=== PATIENT | male | born 1995 | race Caucasian/White ===

== ENCOUNTER 2018-11-22 19:17 | Emergency (ER) | payer BC ==
[2018-11-22 20:15] VITALS: BP 147/67
--- NOTE | 2018-11-22 20:17 | UC ---
Hand/Wrist HPI - HPI Summary HPI Summary: 23 yo male presents with LEFT hand pain. He tells me that 2 nights ago he punched a wall out of anger. Had immediate pain to the 5th MCP. Since that time has been painful, but pain has improved with rest and ice. He is right hand dominant. Denies numbness or tingling. - History Of Current Complaint Chief Complaint: UCUpperExtremity Stated Complaint: LEFT HAND INJURY Time Seen by Provider: 11/22/18 20:17 Hx Obtained From: Patient Onset/Duration: Sudden Onset Severity Initially: Severe Severity Currently: Moderate Pain Intensity: 5 Pain Scale Used: 0-10 Numeric - Allergies/Home Medications Allergies/Adverse Reactions: Allergies Allergy/AdvReac Type Severity Reaction Status Date / Time No Known Allergies Allergy Verified 11/22/18 20:07 Home Medications: Home Medications NK [No Home Medications Reported] 11/22/18 [History Confirmed 11/22/18] PMH/Surg Hx/FS Hx/Imm Hx - Additional Past Medical History Additional PMH: None - Surgical History Surgical History: Yes Surgery Procedure, Year, and Place: UMBILLICAL HERNIA REPAIR. EAR TUBES - Family History Known Family History: Positive: Non-Contributory - Social History Occupation: Student Lives: Dormitory/Roommates Alcohol Use: Rare Substance Use Type: None Smoking Status (MU): Never Smoked Tobacco Review of Systems All Other Systems Reviewed And Are Negative: No Constitutional: Positive: Negative Skin: Positive: Negative Respiratory: Positive: Negative Cardiovascular: Positive: Negative Neurovascular: Positive: Negative Musculoskeletal: Positive: Other: - Left hand pain Neurological: Positive: Negative Psychological: Positive: Negative Physical Exam - Summary Physical Exam Summary: GENERAL: NAD. WDWN. No pain distress. SKIN: No rashes, sores, lesions, or open wounds. CHEST: No accessory muscle use. Breathing comfortably and in no distress. CV: Pulses intact radial and ulnar. Cap refill <2seconds MSK: LEFT HAND: 5th MCP moderate edema and mild TTP. FROM with mild pain. No snuffbox tenderness. NEURO: Alert. Sensations intact hand and all fingers. PSYCH: Age appropriate behavior. Triage Information Reviewed: Yes Vital Signs: Initial Vital Signs Temp 99 F 11/22/18 20:07 Pulse 76 11/22/18 20:07 Resp 16 11/22/18 20:07 BP 147/67 11/22/18 20:07 Pulse Ox 99 11/22/18 20:07 Vital Signs Reviewed: Yes Procedures - Splinting Left 5th Digit Hand-Made Type: orthoglass Splint: ulnar Pre-Proc Neuro Vasc Exam: normal Post-Proc Neuro Vasc Exam: normal Splint Applied by Provider: [facility] - Radiology Hand XR Radiology Interpretation Completed By: ED Physician Summary of Radiographic Findings: Fracture 5th MCP with slight displacement. Hand/Wrist Course/Dx - Course Course Of Treatment: XR wet read positive for fx as above. Pt as placed in an ulnar gutter splint and advised to RICE and f/u with Orthopedics this week for further evaluation - Differential Dx/Diagnosis Provider Diagnosis: Closed fracture of 5th metacarpal Discharge ED - Sign-Out/Discharge Documenting (check all that apply): Patient Departure All imaging exams completed and their final reports reviewed: No - Discharge Plan Condition: Stable Disposition: HOME Patient Education Materials: Boxer Fracture (ED) Referrals: No Primary Care Phys,NOPCP [Primary Care Provider] - Alexis Kate MD [Medical Doctor] - As Soon As Possible Additional Instructions: If you develop a fever, shortness of breath, chest pain, new or worsening symptoms - please call your PCP or go to the ED immediately. 1) Rest, Ice, and elevate your hand to decrease pain and swelling 2) Keep the splint clean, dry, and intact until you are able to see Orthopedics 3) Please schedule an appointment with Orthopedics as soon as possible for further treatment - Billing Disposition and Condition Condition: STABLE Disposition: Home - Attestation Statements Provider Attestation: Chart reviewed. Pt not seen by me. I was available for consult. TRACY
--- NOTE | 2018-11-23 08:23 | UC ---
- Progress Note Progress Note: xray report : IMPRESSION: Fracture of the fifth metacarpal head. R0 Course/Dx - Diagnoses Provider Diagnoses: Closed fracture of 5th metacarpal Discharge ED - Sign-Out/Discharge Documenting (check all that apply): Patient Departure All imaging exams completed and their final reports reviewed: Yes - Discharge Plan Condition: Stable Disposition: HOME Patient Education Materials: Boxer Fracture (ED) Referrals: Alexis Kate MD [Medical Doctor] - As Soon As Possible No Primary Care Phys,NOPCP [Primary Care Provider] - Additional Instructions: If you develop a fever, shortness of breath, chest pain, new or worsening symptoms - please call your PCP or go to the ED immediately. 1) Rest, Ice, and elevate your hand to decrease pain and swelling 2) Keep the splint clean, dry, and intact until you are able to see Orthopedics 3) Please schedule an appointment with Orthopedics as soon as possible for further treatment - Billing Disposition and Condition Condition: STABLE Disposition: Home
== END 2018-11-22 20:46 | disposition home or self-care (01) ==
LOC: UCCORT 19:17
DX: S62.307A Unspecified fracture of fifth metacarpal bone, left hand, initial encounter for closed fracture (principal); W22.09XA Striking against other stationary object, initial encounter; Y92.9 Unspecified place or not applicable
CPT/HCPCS: 26600; 26755; 99201; G0463